=== PATIENT | female | born 1970 | race Caucasian/White ===

== ENCOUNTER 2016-11-22 16:44 | Emergency (ER) | payer OTHER ==
[~2016-11-22] VITALS: Ht 162.5 cm; Wt 54.4 kg
[~2016-11-22 16:44] MED LIST: BENTYL10 MG PO; CARBAMAZEPINE; CIPRO500 MG PO; DILANTIN100 MG PO; FOLIC ACID1 MG PO; KETOROLAC10 MG PO; LAMOTRIGINE200 MG PO; LIDEX 0.05% CRE15 GM T; MASON NATURAL2000 IU PO; MELATONIN5 M7 PO; MULTIPLE VITAMI1 CAP PO; NAPROSYN500 MG PO; NEURONTIN300 MG PO; PARAFON FORTE500 MG PO; PRILOSEC20 MG PO; PROTONIX40 MG PO; TEGRETOL PO; TOPIRAMATE25 MG PO; ZOFRAN ODT4 MG SL; Zofran4 MG PO; [UNRECOGNIZED DRUG - CODE] PO
[2016-11-22] MEDS ORDERED: Zofran4 MG PO (17:28)
== END 2016-11-22 17:36 | disposition home or self-care (01) ==
LOC: ED 16:44
DX: K29.00 Acute gastritis without bleeding (principal); F17.200 Nicotine dependence, unspecified, uncomplicated; Z88.0 Allergy status to penicillin; Z79.899 Other long term (current) drug therapy

== ENCOUNTER 2016-12-13 18:03 | Emergency (ER) | payer OTHER ==
[~2016-12-13] VITALS: Ht 162.5 cm; Wt 53.1 kg
== END 2016-12-13 19:41 | disposition home or self-care (01) ==
LOC: ED 18:03
DX: H11.31 Conjunctival hemorrhage, right eye (principal); F17.200 Nicotine dependence, unspecified, uncomplicated; Z88.0 Allergy status to penicillin; Z90.49 Acquired absence of other specified parts of digestive tract

== ENCOUNTER 2017-04-09 19:03 | Emergency (ER) | payer OTHER ==
[~2017-04-09] VITALS: Ht 162.5 cm; Wt 51.7 kg
[2017-04-09 19:53] LABS: BASO # 0.1 10*3/uL (0.0-0.1); BASO % 0.7 % (0.0-1.0); EOS # 0.3 10*3/uL (0.0-0.4); EOS % 3.5 % (1.0-4.0); HEMATOCRIT 37.8 % (37.0-47.0); HEMOGLOBIN 12.5 g/dl (12.0-16.0); LYMPH # 3.7 10*3/uL (1.3-4.4); LYMPH % 39.3 % (27.0-41.0); MEAN CELL VOLUME 94.7 fl (81.0-99.0); MEAN CORPUSCULAR HGB 31.3 pg (27.0-31.0); MEAN CORPUSCULAR HGB CONC 33.1 g/dl (33.0-37.0); MEAN PLATELET VOLUME 10.9 fl (9.6-12.3); MONO # 0.5 10*3/uL (0.1-1.0); MONO % 5.7 % (3.0-9.0); NEUT # 4.8 10*3/uL (2.3-7.9); NEUT % 50.6 % (47.0-73.0); PLATELET COUNT AUTOMATED 221 10*3/uL (130-400); RED BLOOD COUNT 3.99 10*6/uL (4.10-5.10); RED CELL DISTRI WIDTH 12.9 % (0-14.5); WHITE BLOOD COUNT 9.4 10*3/uL (4.8-10.8)
[2017-04-09 20:07] LABS: ALBUMIN 3.4 gm/dl (3.1-4.5); ALKALINE PHOSPHATASE 55 U/L (45-117); BUN 16 mg/dl (7-24); CHLORIDE 109 mmol/L (98-107); CREATININE 0.78 mg/dL (0.55-1.02); LIPASE 164 U/L (73-393); POTASSIUM 4.4 mmol/L (3.5-5.1); SGOT/AST 9 IU/L (3-35); SGPT/ALT 22 U/L (12-78); SODIUM 142 mmol/L (136-145); TOTAL PROTEIN 6.8 gm/dL (6.4-8.2)
[2017-04-09 20:10] LABS: BILIRUBIN NEGATIVE (NEGATIVE); BLOOD 2+ (NEGATIVE); CLARITY SL CLOUDY (CLEAR); COLOR YELLOW (YELLOW); GLUCOSE NEGATIVE (NEGATIVE); KETONE NEGATIVE (NEGATIVE); LEUKO ESTERASE TRACE (NEGATIVE); NITRITE NEGATIVE (NEGATIVE); PH 7.5 (5.0-9.0); SPECIFIC GRAVITY 1.015 (1.005-1.030)
[2017-04-09 20:17] LABS: BACTERIA 1+; EPITHELIAL CELLS 31-40; RBC 21-30 rbc/hpf (0-2)
[2017-04-09] MEDS ORDERED: SEPTDS PO (21:44)
== END 2017-04-10 00:10 | disposition home or self-care (01) ==
LOC: ED 19:03
PROVIDERS: Nurse Practitioner Family
DX: N39.0 Urinary tract infection, site not specified (principal); R31.9 Hematuria, unspecified; Z90.49 Acquired absence of other specified parts of digestive tract; Z98.890 Other specified postprocedural states; Z79.899 Other long term (current) drug therapy

== ENCOUNTER 2017-06-27 13:48 | Emergency (ER) | payer OTHER ==
[~2017-06-27] VITALS: Ht 165.1 cm; Wt 56.7 kg
[~2017-06-27 13:48] MED LIST changes: +SEPTDS PO
== END 2017-06-27 14:27 | disposition home or self-care (01) ==
LOC: ED 13:48
DX: S61.301A Unspecified open wound of left index finger with damage to nail, initial encounter (principal); F17.200 Nicotine dependence, unspecified, uncomplicated; Z79.899 Other long term (current) drug therapy; X58.XXXA Exposure to other specified factors, initial encounter; Y93.9 Activity, unspecified; Y92.89 Other specified places as the place of occurrence of the external cause; Y99.8 Other external cause status

== ENCOUNTER 2017-07-01 15:04 | Emergency (ER) | payer OTHER ==
[~2017-07-01] VITALS: Ht 165.1 cm; Wt 52.2 kg
[2017-07-01 15:43] LABS: BASO # 0.1 10*3/uL (0.0-0.1); EOS # 0.2 10*3/uL (0.0-0.4); EOS % 2.3 % (1.0-4.0); HEMATOCRIT 40.8 % (37.0-47.0); HEMOGLOBIN 13.7 g/dl (12.0-16.0); LYMPH # 1.7 10*3/uL (1.3-4.4); LYMPH % 22.1 % (27.0-41.0); MEAN CELL VOLUME 93.6 fl (81.0-99.0); MEAN CORPUSCULAR HGB 31.4 pg (27.0-31.0); MEAN CORPUSCULAR HGB CONC 33.6 g/dl (33.0-37.0); MEAN PLATELET VOLUME 10.7 fl (9.6-12.3); MONO # 0.4 10*3/uL (0.1-1.0); MONO % 4.6 % (3.0-9.0); NEUT # 5.4 10*3/uL (2.3-7.9); NEUT % 69.9 % (47.0-73.0); PLATELET COUNT AUTOMATED 231 10*3/uL (130-400); RED BLOOD COUNT 4.36 10*6/uL (4.10-5.10); RED CELL DISTRI WIDTH 12.5 % (0-14.5); WHITE BLOOD COUNT 7.8 10*3/uL (4.8-10.8)
[2017-07-01 15:54] LABS: ACT PARTIAL THROMBO TIME 21.8 SECONDS (20.8-31.5)
[2017-07-01 15:59] LABS: ALBUMIN 3.8 gm/dl (3.1-4.5); ALKALINE PHOSPHATASE 55 U/L (45-117); BUN 13 mg/dl (7-24); CHLORIDE 109 mmol/L (98-107); CREATININE 0.89 mg/dL (0.55-1.02); PHENYTOIN (DILANTIN) 0.9 ug/ml (10-20); POTASSIUM 4.5 mmol/L (3.5-5.1); SGOT/AST 11 IU/L (3-35); SGPT/ALT 15 U/L (12-78); SODIUM 143 mmol/L (136-145); TOTAL PROTEIN 7.3 gm/dL (6.4-8.2)
[2017-07-01 16:01] LABS: TROPONIN I < 0.015 ng/ml (<0.045)
[2017-07-01 16:03] LABS: ETHYL ALCOHOL < 3.0 mg/dl (<3)
[2017-07-01 18:18] LABS: URINE AMPHETAMINES < 1000 (1000ng/ml); URINE BARBITURATES < 200 (200ng/ml); URINE BENZODIAZEPINES < 200 (200ng/ml); URINE CANNABINOIDS (THC) < 50 (50ng/ml); URINE COCAINE < 300 (300ng/ml); URINE METHADONE < 300 (300ng/ml); URINE OPIATES < 300 (300ng/ml)
[2017-07-01 18:22] LABS: URINE PHENCYCLIDINE < 25 (25ng/ml)
== END 2017-07-01 21:32 | disposition short-term general hospital (02) ==
LOC: ED 15:04
PROVIDERS: Emergency Medicine
DX: G40.909 Epilepsy, unspecified, not intractable, without status epilepticus (principal); R41.0 Disorientation, unspecified; R79.89 Other specified abnormal findings of blood chemistry; Z79.899 Other long term (current) drug therapy

== ENCOUNTER → 2017-10-11 | Outpatient (CLI) | payer OTHER ==
[2017-10-11 08:59] LABS: ALBUMIN 3.5 gm/dl (3.1-4.5); ALKALINE PHOSPHATASE 65 U/L (45-117); BILIRUBIN, DIRECT < 0.1 mg/dL (0.0-0.2); SGOT/AST 15 IU/L (3-35); SGPT/ALT 30 U/L (12-78); TOTAL PROTEIN 7.1 gm/dL (6.4-8.2)
[2017-10-11 09:08] LABS: PHENYTOIN (DILANTIN) 10.6 ug/ml (10-20)
== END | disposition home or self-care (01) ==
LOC: LAB 08:17
PROVIDERS: Psychiatry & Neurology Neurology
DX: G40.309 Generalized idiopathic epilepsy and epileptic syndromes, not intractable, without status epilepticus (principal)

== ENCOUNTER 2017-12-27 21:23 | Emergency (ER) | payer OTHER ==
[~2017-12-27] VITALS: Ht 162.5 cm; Wt 65.8 kg
[2017-12-27] MEDS ORDERED: QVAR8.7 G1 INH (21:24)
[2017-12-27] MEDS ORDERED: VENTOLIN 02.5 MG/3 M INH (21:24)
== END 2017-12-28 00:05 | disposition home or self-care (01) ==
LOC: ED 21:23
DX: S09.8XXA Other specified injuries of head, initial encounter (principal); F17.200 Nicotine dependence, unspecified, uncomplicated; Z88.0 Allergy status to penicillin; Z79.899 Other long term (current) drug therapy; W18.09XA Striking against other object with subsequent fall, initial encounter; Y93.89 Activity, other specified; Y92.89 Other specified places as the place of occurrence of the external cause; Y99.8 Other external cause status

== ENCOUNTER 2018-04-30 13:22 | Emergency (ER) | payer OTHER ==
[~2018-04-30] VITALS: Ht 165.1 cm; Wt 54.4 kg
[~2018-04-30 13:22] MED LIST changes: +QVAR8.7 G1 INH; +VENTOLIN 02.5 MG/3 M INH
[2018-04-30] MEDS ORDERED: ZOFRAN4 MG PO (13:37)
[2018-04-30] MEDS ORDERED: CLINDAMYCIN150 MG PO (13:37)
[2018-04-30] MEDS ORDERED: NAPROSYN500 MG PO (13:37)
== END 2018-04-30 14:25 | disposition home or self-care (01) ==
LOC: ED 13:22
DX: S61.032A Puncture wound without foreign body of left thumb without damage to nail, initial encounter (principal); K21.9 Gastro-esophageal reflux disease without esophagitis; G40.909 Epilepsy, unspecified, not intractable, without status epilepticus; Z88.0 Allergy status to penicillin; Z79.899 Other long term (current) drug therapy; W54.0XXA Bitten by dog, initial encounter; Y93.89 Activity, other specified; Y92.89 Other specified places as the place of occurrence of the external cause; Y99.8 Other external cause status

== ENCOUNTER 2018-07-28 11:24 | Emergency (ER) | payer OTHER ==
[~2018-07-28] VITALS: Ht 162.5 cm; Wt 54.4 kg
[~2018-07-28 11:24] MED LIST changes: +CLINDAMYCIN150 MG PO; +ZOFRAN4 MG PO
[2018-07-28 12:12] LABS: BASO % 0.4 % (0.0-1.0); EOS % 0.3 % (1.0-4.0); HEMATOCRIT 42.7 % (37.0-47.0); HEMOGLOBIN 14.4 g/dl (12.0-16.0); LYMPH # 0.8 10*3/uL (1.3-4.4); LYMPH % 9.7 % (27.0-41.0); MEAN CELL VOLUME 98.4 fl (81.0-99.0); MEAN CORPUSCULAR HGB 33.2 pg (27.0-31.0); MEAN CORPUSCULAR HGB CONC 33.7 g/dl (33.0-37.0); MEAN PLATELET VOLUME 10.7 fl (9.6-12.3); MONO # 0.4 10*3/uL (0.1-1.0); MONO % 4.4 % (3.0-9.0); NEUT # 6.8 10*3/uL (2.3-7.9); NEUT % 84.8 % (47.0-73.0); PLATELET COUNT AUTOMATED 223 10*3/uL (130-400); RED BLOOD COUNT 4.34 10*6/uL (4.10-5.10); RED CELL DISTRI WIDTH 12.6 % (0-14.5)
[2018-07-28 12:26] LABS: ALBUMIN 3.6 gm/dl (3.1-4.5); ALKALINE PHOSPHATASE 68 U/L (45-117); BUN 12 mg/dl (7-24); CHLORIDE 107 mmol/L (98-107); CREATININE 0.84 mg/dL (0.55-1.02); PHENYTOIN (DILANTIN) 7.8 ug/ml (10-20); POTASSIUM 4.3 mmol/L (3.5-5.1); SGOT/AST 12 IU/L (3-35); SGPT/ALT 24 U/L (12-78); SODIUM 140 mmol/L (136-145); TOTAL PROTEIN 7.1 gm/dL (6.4-8.2)
== END 2018-07-28 14:54 | disposition home or self-care (01) ==
LOC: ED 11:24
PROVIDERS: Emergency Medicine
DX: G40.909 Epilepsy, unspecified, not intractable, without status epilepticus (principal); R51 Headache; K21.9 Gastro-esophageal reflux disease without esophagitis; Z88.0 Allergy status to penicillin; Z79.2 Long term (current) use of antibiotics; Z79.899 Other long term (current) drug therapy; Z90.49 Acquired absence of other specified parts of digestive tract

== ENCOUNTER → 2018-08-24 | Outpatient (CLI) | payer OTHER ==
[2018-08-24 10:29] LABS: BASO # 0.1 10*3/uL (0.0-0.1); BASO % 0.7 % (0.0-1.0); EOS # 0.5 10*3/uL (0.0-0.4); EOS % 6.2 % (1.0-4.0); HEMATOCRIT 44.5 % (37.0-47.0); HEMOGLOBIN 14.4 g/dl (12.0-16.0); LYMPH % 26.4 % (27.0-41.0); MEAN CELL VOLUME 98.7 fl (81.0-99.0); MEAN CORPUSCULAR HGB 31.9 pg (27.0-31.0); MEAN CORPUSCULAR HGB CONC 32.4 g/dl (33.0-37.0); MEAN PLATELET VOLUME 10.4 fl (9.6-12.3); MONO # 0.5 10*3/uL (0.1-1.0); MONO % 6.4 % (3.0-9.0); NEUT # 4.5 10*3/uL (2.3-7.9); PLATELET COUNT AUTOMATED 243 10*3/uL (130-400); RED BLOOD COUNT 4.51 10*6/uL (4.10-5.10); RED CELL DISTRI WIDTH 12.8 % (0-14.5); WHITE BLOOD COUNT 7.5 10*3/uL (4.8-10.8)
[2018-08-24 10:35] LABS: URINE AMPHETAMINES < 1000 (1000ng/ml); URINE BARBITURATES < 200 (200ng/ml); URINE BENZODIAZEPINES < 200 (200ng/ml); URINE CANNABINOIDS (THC) < 50 (50ng/ml); URINE COCAINE < 300 (300ng/ml); URINE METHADONE < 300 (300ng/ml); URINE OPIATES < 300 (300ng/ml)
[2018-08-24 10:47] LABS: URINE PHENCYCLIDINE < 25 (25ng/ml)
[2018-08-24 10:54] LABS: ALBUMIN 3.7 gm/dl (3.1-4.5); ALKALINE PHOSPHATASE 68 U/L (45-117); BILIRUBIN, DIRECT < 0.1 mg/dL (0.0-0.2); PHENYTOIN (DILANTIN) 18.7 ug/ml (10-20); SGOT/AST 17 IU/L (3-35); SGPT/ALT 35 U/L (12-78); TOTAL PROTEIN 7.4 gm/dL (6.4-8.2)
== END | disposition home or self-care (01) ==
LOC: LAB 09:55
PROVIDERS: Psychiatry & Neurology Neurology
DX: G40.309 Generalized idiopathic epilepsy and epileptic syndromes, not intractable, without status epilepticus (principal)

== ENCOUNTER → 2018-09-29 | Outpatient (CLI) | payer OTHER ==
[2018-09-29 09:52] LABS: BASO # 0.1 10*3/uL (0.0-0.1); BASO % 1.2 % (0.0-1.0); EOS # 0.2 10*3/uL (0.0-0.4); EOS % 3.1 % (1.0-4.0); HEMATOCRIT 42.4 % (37.0-47.0); HEMOGLOBIN 13.5 g/dl (12.0-16.0); LYMPH # 1.9 10*3/uL (1.3-4.4); LYMPH % 28.7 % (27.0-41.0); MEAN CELL VOLUME 98.6 fl (81.0-99.0); MEAN CORPUSCULAR HGB 31.4 pg (27.0-31.0); MEAN CORPUSCULAR HGB CONC 31.8 g/dl (33.0-37.0); MEAN PLATELET VOLUME 10.2 fl (9.6-12.3); MONO # 0.4 10*3/uL (0.1-1.0); NEUT # 4.1 10*3/uL (2.3-7.9); NEUT % 60.7 % (47.0-73.0); PLATELET COUNT AUTOMATED 271 10*3/uL (130-400); RED CELL DISTRI WIDTH 13.1 % (0-14.5); WHITE BLOOD COUNT 6.7 10*3/uL (4.8-10.8)
[2018-09-29 10:28] LABS: ALBUMIN 3.5 gm/dl (3.1-4.5); BUN 17 mg/dl (7-24); CHLORIDE 105 mmol/L (98-107); CHOLESTEROL 219 mg/dL (<200); CREATININE 0.76 mg/dL (0.55-1.02); HDL CHOLESTEROL 66 mg/dl (40-60); LDL CHOLESTEROL 136 mg/dL (9-159); POTASSIUM 4.1 mmol/L (3.5-5.1); SGOT/AST 13 IU/L (3-35); SODIUM 139 mmol/L (136-145); TRIGLYCERIDES 87 mg/dl (<150); VLDL CHOLESTEROL 17 mg/dL (6-40)
[2018-09-29 10:38] LABS: ALKALINE PHOSPHATASE 84 U/L (45-117); SGPT/ALT 25 U/L (12-78); TOTAL PROTEIN 7.2 gm/dL (6.4-8.2)
[2018-09-29 10:42] LABS: VITAMIN D, 25-HYDROXY 7.3 ng/mL (30-100)
== END | disposition home or self-care (01) ==
LOC: LAB 09:23
PROVIDERS: Nurse Practitioner Family
DX: Z51.81 Encounter for therapeutic drug level monitoring (principal); N91.2 Amenorrhea, unspecified; F31.9 Bipolar disorder, unspecified; Z79.899 Other long term (current) drug therapy

== ENCOUNTER 2019-04-28 20:57 | Inpatient (IN) | payer OTHER ==
[~2019-04-28] VITALS: Ht 162.5 cm; Wt 52.4 kg
--- NOTE | 2019-04-28 21:05 | NUR ---
BUGS SEEN ON PT IN TRIAGE.PT TAKEN TO DECON ROOM.MD MARSH AWARE.
--- NOTE | 2019-04-28 21:23 | NUR ---
PT RETURNED TO ROOM 15 VIA W/C.BELONGINGS DOUBLE BAGGED AND AT BEDSIDE.
[2019-04-28 21:52] LABS: BASO # 0.1 10*3/uL (0.0-0.1); BASO % 0.9 % (0.0-1.0); EOS # 0.3 10*3/uL (0.0-0.4); EOS % 3.2 % (1.0-4.0); HEMATOCRIT 40.4 % (37.0-47.0); HEMOGLOBIN 13.7 g/dl (12.0-16.0); LYMPH # 3.4 10*3/uL (1.3-4.4); LYMPH % 41.8 % (27.0-41.0); MEAN CELL VOLUME 96.4 fl (81.0-99.0); MEAN CORPUSCULAR HGB 32.7 pg (27.0-31.0); MEAN CORPUSCULAR HGB CONC 33.9 g/dl (33.0-37.0); MEAN PLATELET VOLUME 10.8 fl (9.6-12.3); MONO # 0.5 10*3/uL (0.1-1.0); MONO % 6.5 % (3.0-9.0); NEUT # 3.9 10*3/uL (2.3-7.9); NEUT % 47.4 % (47.0-73.0); PLATELET COUNT AUTOMATED 211 10*3/uL (130-400); RED BLOOD COUNT 4.19 10*6/uL (4.10-5.10); RED CELL DISTRI WIDTH 12.7 % (0-14.5); WHITE BLOOD COUNT 8.2 10*3/uL (4.8-10.8)
[2019-04-28 22:07] LABS: BILIRUBIN NEGATIVE (NEGATIVE); BLOOD 3+ (NEGATIVE); CLARITY CLEAR (CLEAR); COLOR YELLOW (YELLOW); GLUCOSE NEGATIVE (NEGATIVE); KETONE NEGATIVE (NEGATIVE); LEUKO ESTERASE 2+ (NEGATIVE); NITRITE NEGATIVE (NEGATIVE); PH 7.5 (5.0-9.0)
[2019-04-28 22:07] LABS: CHLORIDE 109 mmol/L (98-107); SODIUM 140 mmol/L (136-145)
[2019-04-28 22:11] LABS: ALBUMIN 3.6 gm/dl (3.1-4.5); ALKALINE PHOSPHATASE 69 U/L (45-117); BUN 8 mg/dl (7-24); CREATININE 0.81 mg/dL (0.55-1.02); SGOT/AST 9 IU/L (3-35); SGPT/ALT 15 U/L (12-78); TOTAL PROTEIN 6.9 gm/dL (6.4-8.2)
[2019-04-28 22:13] LABS: URINE AMPHETAMINES < 1000 (1000ng/ml); URINE BARBITURATES < 200 (200ng/ml); URINE BENZODIAZEPINES < 200 (200ng/ml); URINE CANNABINOIDS (THC) < 50 (50ng/ml); URINE COCAINE < 300 (300ng/ml); URINE METHADONE < 300 (300ng/ml); URINE OPIATES < 300 (300ng/ml)
[2019-04-28 22:17] LABS: URINE PHENCYCLIDINE < 25 (25ng/ml)
[2019-04-28 22:17] LABS: POTASSIUM 3.5 mmol/L (3.5-5.1)
[2019-04-28 22:36] LABS: BACTERIA 1+; EPITHELIAL CELLS 0-2; WBC 21-30 wbc/hpf (0-5)
[2019-04-29 00:48] VITALS: BP 90/56
[2019-04-29 01:00] VITALS: BP 115/68
--- NOTE | 2019-04-29 03:45 | NUR ---
NOTIFIED THAT POISON CONTROL CALLED FOR NEW DILANTIN LEVEL. WITH THE DIFFERENCE BETWEEN THE 2 LEVELS, THEY ARE REQUESTING NEW DILANTIN LEVEL.
[2019-04-29 06:40] LABS: BASO # 0.1 10*3/uL (0.0-0.1); EOS # 0.2 10*3/uL (0.0-0.4); EOS % 3.5 % (1.0-4.0); HEMATOCRIT 39.2 % (37.0-47.0); HEMOGLOBIN 12.7 g/dl (12.0-16.0); LYMPH # 2.5 10*3/uL (1.3-4.4); LYMPH % 38.8 % (27.0-41.0); MEAN CELL VOLUME 98.5 fl (81.0-99.0); MEAN CORPUSCULAR HGB 31.9 pg (27.0-31.0); MEAN CORPUSCULAR HGB CONC 32.4 g/dl (33.0-37.0); MEAN PLATELET VOLUME 10.9 fl (9.6-12.3); MONO # 0.4 10*3/uL (0.1-1.0); MONO % 6.7 % (3.0-9.0); NEUT # 3.2 10*3/uL (2.3-7.9); NEUT % 49.8 % (47.0-73.0); PLATELET COUNT AUTOMATED 203 10*3/uL (130-400); RED BLOOD COUNT 3.98 10*6/uL (4.10-5.10); RED CELL DISTRI WIDTH 12.8 % (0-14.5); WHITE BLOOD COUNT 6.3 10*3/uL (4.8-10.8)
[2019-04-29 06:54] LABS: ALBUMIN 3.1 gm/dl (3.1-4.5); BUN 11 mg/dl (7-24); CHLORIDE 110 mmol/L (98-107); CREATININE 0.65 mg/dL (0.55-1.02); POTASSIUM 3.9 mmol/L (3.5-5.1); SGOT/AST 9 IU/L (3-35); SGPT/ALT 14 U/L (12-78); SODIUM 140 mmol/L (136-145); TOTAL PROTEIN 5.9 gm/dL (6.4-8.2)
[2019-04-29 07:10] LABS: ALKALINE PHOSPHATASE 61 U/L (45-117); FREE T4 0.71 ng/dl (0.76-1.46)
--- NOTE | 2019-04-29 07:30 | NUR ---
24 HR chart check completed.
[2019-04-29 07:32] LABS: PHENYTOIN (DILANTIN) 37.1 ug/ml (10-20)
--- NOTE | 2019-04-29 07:40 | NUR ---
DR DOBBS CONTACTED AND INFORMED OF CRITICAL DILANTIN LEVEL 37.1. NO NEW ORDERS RECEIVED AT THIS TIME
[2019-04-29 08:00] VITALS: BP 118/60
--- NOTE | 2019-04-29 09:00 | NUR ---
RESTING IN BED. NO DISTRESS NOTED. RESPIRATIONS EASY. LUNGS DIMINISHED, CLEAR. PULSE OX 99% RA. OFFERED AND EDUCATED REGARDING TEDS, DECLINED. IV FLUIDS MAINTAINED. CALL LIGHT WITHIN REACH. NO VOICED COMPLAINTS
--- NOTE | 2019-04-29 10:00 | NUR ---
DR FOURNIER AND RINKU HERE TO ASSESS PATIENT AND DISCUSS PLAN OF CARE
[2019-04-29 12:00] VITALS: BP 125/81
--- NOTE | 2019-04-29 12:00 | NUR ---
SITTING IN BED. NO DISTRESS NOTED. RESPIRATIONS EASY. IV FLUIDS MAINTAINED. CALL LIGHT WITHIN REACH
[2019-04-29 16:00] VITALS: BP 122/85
--- NOTE | 2019-04-29 18:00 | NUR ---
RESTING IN BED WITH NO DISTRESS NOTED. RESPIRATIONS EASY. IV FLUIDS MAINTAINED. CALL LIGHT WITHIN REACH. NO VOICED COMPLAINTS
[2019-04-29 20:00] VITALS: BP 113/79
--- NOTE | 2019-04-29 20:19 | NUR ---
PATIENT AWAKE AND ALERT SITTING INBED. PATIENT HAS NO COMPLAINTS AT THIS TIME. PATIENT ONLY WISHES TO GO HOME. PATIENT EDUCATED ON DILANTIN LEVEL AND WHY SHE IS NOT RECEVING THE DILANTIN AT THIS TIME. PATIENT STATES SHE UNDERSTANDS. PATIENT EDUCATED ON OPTIONS AVAILABLE FOR NICOTINE WITHDRAWAL. PATIENT STATES THAT SHE DOES NOT NEED ANYTHING AT THIS TIME, BUT WILL LET US KNOW IF SHE DOES. SEE ASSESSMENT. CALL INGRAM WITHIN REACH.
[2019-04-30] VITALS: BP 121/74
--- NOTE | 2019-04-30 02:48 | NUR ---
PATIENT RESTING WITH EYES CLOSED.RESPIRATIONS EASY AND UNLABORED. CALL LIGHT WITHIN REACH. WILL MONITOR.
--- NOTE | 2019-04-30 05:00 | NUR ---
24 HR chart check completed.
[2019-04-30 06:23] LABS: BASO # 0.1 10*3/uL (0.0-0.1); BASO % 0.8 % (0.0-1.0); EOS # 0.2 10*3/uL (0.0-0.4); EOS % 2.4 % (1.0-4.0); HEMATOCRIT 36.5 % (37.0-47.0); LYMPH # 2.5 10*3/uL (1.3-4.4); LYMPH % 38.7 % (27.0-41.0); MEAN CELL VOLUME 97.3 fl (81.0-99.0); MEAN CORPUSCULAR HGB CONC 32.9 g/dl (33.0-37.0); MEAN PLATELET VOLUME 11.2 fl (9.6-12.3); MONO # 0.4 10*3/uL (0.1-1.0); MONO % 6.1 % (3.0-9.0); NEUT # 3.3 10*3/uL (2.3-7.9); NEUT % 51.8 % (47.0-73.0); PLATELET COUNT AUTOMATED 176 10*3/uL (130-400); RED BLOOD COUNT 3.75 10*6/uL (4.10-5.10); RED CELL DISTRI WIDTH 12.9 % (0-14.5); WHITE BLOOD COUNT 6.4 10*3/uL (4.8-10.8)
[2019-04-30 06:57] LABS: BUN 12 mg/dl (7-24); CHLORIDE 111 mmol/L (98-107); CREATININE 0.79 mg/dL (0.55-1.02); POTASSIUM 3.9 mmol/L (3.5-5.1); SODIUM 141 mmol/L (136-145)
[2019-04-30 07:06] LABS: PHENYTOIN (DILANTIN) 29.6 ug/ml (10-20)
--- NOTE | 2019-04-30 07:35 | NUR ---
24 HR chart check completed.
[2019-04-30 08:00] VITALS: BP 112/60
--- NOTE | 2019-04-30 10:45 | NUR ---
Discharge instructions reviewed with patient/family. Patient receptive and verbalizes understanding. Follow-up care arranged. Written instructions given to patient/family. PATIENT OFFERED WC FOR D/C, DECLINED. AMBULATED OFF FLOOR IN STABLE CONDITION DURAN CARNEY
== END 2019-04-30 10:45 | disposition home or self-care (01) | DRG 812 ==
LOC: ED 20:57 → EDHOLD 23:36 → 5E 23:36
PROVIDERS: Emergency Medicine Emergency Medical Services; Internal Medicine; ADMIT Internal Medicine
DX: T42.0X1A Poisoning by hydantoin derivatives, accidental (unintentional), initial encounter (principal); N39.0 Urinary tract infection, site not specified; A59.9 Trichomoniasis, unspecified; K21.9 Gastro-esophageal reflux disease without esophagitis; G40.909 Epilepsy, unspecified, not intractable, without status epilepticus; F32.9 Major depressive disorder, single episode, unspecified; R73.9 Hyperglycemia, unspecified; F17.210 Nicotine dependence, cigarettes, uncomplicated; Y92.89 Other specified places as the place of occurrence of the external cause; Z71.6 Tobacco abuse counseling; Z88.0 Allergy status to penicillin; Z91.81 History of falling; Z87.440 Personal history of urinary (tract) infections; Z90.49 Acquired absence of other specified parts of digestive tract; Z98.891 History of uterine scar from previous surgery; Z79.899 Other long term (current) drug therapy

== ENCOUNTER → 2019-05-02 | Outpatient (CLI) | payer OTHER | END | disposition home or self-care (01) | LOC: LAB 09:35 | DX: T42.0X1A Poisoning by hydantoin derivatives, accidental (unintentional), initial encounter (principal) ==

== ENCOUNTER 2019-08-20 20:38 | Emergency (ER) | payer OTHER ==
[~2019-08-20] VITALS: Ht 152.4 cm; Wt 50.3 kg
[2019-08-20 21:45] LABS: BASO # 0.1 10*3/uL (0.0-0.1); BASO % 0.5 % (0.0-1.0); EOS % 0.2 % (1.0-4.0); HEMOGLOBIN 12.8 g/dl (12.0-16.0); LYMPH # 1.6 10*3/uL (1.3-4.4); LYMPH % 16.5 % (27.0-41.0); MEAN CELL VOLUME 99.3 fl (81.0-99.0); MEAN CORPUSCULAR HGB 31.8 pg (27.0-31.0); MEAN PLATELET VOLUME 11.5 fl (9.6-12.3); MONO # 0.4 10*3/uL (0.1-1.0); MONO % 4.6 % (3.0-9.0); NEUT # 7.4 10*3/uL (2.3-7.9); NEUT % 77.8 % (47.0-73.0); PLATELET COUNT AUTOMATED 230 10*3/uL (130-400); RED BLOOD COUNT 4.03 10*6/uL (4.10-5.10); RED CELL DISTRI WIDTH 12.4 % (0-14.5); WHITE BLOOD COUNT 9.5 10*3/uL (4.8-10.8)
[2019-08-20 22:03] LABS: ALBUMIN 3.6 gm/dl (3.1-4.5); ALKALINE PHOSPHATASE 59 U/L (45-117); BUN 21 mg/dl (7-24); CHLORIDE 113 mmol/L (98-107); CREATININE 1.15 mg/dL (0.55-1.02); POTASSIUM 3.9 mmol/L (3.5-5.1); SGOT/AST 10 IU/L (3-35); SGPT/ALT 18 U/L (12-78); SODIUM 141 mmol/L (136-145); TOTAL PROTEIN 7.2 gm/dL (6.4-8.2)
[2019-08-20 22:15] LABS: TROPONIN I < 0.015 ng/ml (<0.045)
[2019-08-21 01:44] LABS: BILIRUBIN NEGATIVE (NEGATIVE); BLOOD 3+ (NEGATIVE); CLARITY SL CLOUDY (CLEAR); COLOR YELLOW (YELLOW); GLUCOSE NEGATIVE (NEGATIVE); KETONE 1+ (NEGATIVE); LEUKO ESTERASE NEGATIVE (NEGATIVE); NITRITE NEGATIVE (NEGATIVE); UROBILINOGEN 0.2 E.U./dl (0.2-1.0)
[2019-08-21 01:50] LABS: EPITHELIAL CELLS 30-35
[2019-08-21 01:52] LABS: RBC 41-50 rbc/hpf (0-2); YEAST 1+
[2019-08-21 05:24] LABS: URINE AMPHETAMINES < 1000 (1000ng/ml); URINE BARBITURATES < 200 (200ng/ml); URINE BENZODIAZEPINES < 200 (200ng/ml); URINE CANNABINOIDS (THC) < 50 (50ng/ml); URINE COCAINE < 300 (300ng/ml); URINE METHADONE < 300 (300ng/ml); URINE OPIATES < 300 (300ng/ml)
[2019-08-21 05:25] LABS: URINE PHENCYCLIDINE < 25 (25ng/ml)
[2019-08-21] MEDS ORDERED: CEPHALEXIN500 M1 PO (06:07)
[2019-08-21] MEDS ORDERED: METRONIDAZOLE500 M1 PO (06:07)
== END 2019-08-21 06:50 | disposition home or self-care (01) ==
LOC: ED
PROVIDERS: Emergency Medicine
DX: G40.909 Epilepsy, unspecified, not intractable, without status epilepticus (principal); N39.0 Urinary tract infection, site not specified; A59.9 Trichomoniasis, unspecified; K21.9 Gastro-esophageal reflux disease without esophagitis; F17.200 Nicotine dependence, unspecified, uncomplicated; Z88.0 Allergy status to penicillin; Z79.899 Other long term (current) drug therapy; Z90.49 Acquired absence of other specified parts of digestive tract

== ENCOUNTER → 2019-09-15 | Outpatient (CLI) | payer OTHER ==
[~2019-09-15] MED LIST changes: +CEPHALEXIN500 M1 PO; +METRONIDAZOLE500 M1 PO
== END | disposition home or self-care (01) ==
LOC: CT 00:12
DX: R56.9 Unspecified convulsions (principal)

== ENCOUNTER → 2020-01-22 | Outpatient (CLI) | payer OTHER | END | disposition home or self-care (01) | LOC: MAMMO 00:13 | DX: Z12.31 Encounter for screening mammogram for malignant neoplasm of breast (principal) ==

== ENCOUNTER → 2020-03-26 | Outpatient (CLI) | payer OTHER | END | disposition home or self-care (01) | LOC: CP 12:22 | PROVIDERS: ATTEND Family Medicine | DX: J44.9 Chronic obstructive pulmonary disease, unspecified (principal) ==

== ENCOUNTER → 2020-04-03 | Outpatient (CLI) | payer OTHER | END | disposition home or self-care (01) | LOC: LAB 12:34 | PROVIDERS: ATTEND Family Medicine | DX: Z51.81 Encounter for therapeutic drug level monitoring (principal); Z79.899 Other long term (current) drug therapy ==

== ENCOUNTER 2021-01-30 16:25 | Emergency (ER) | payer OTHER ==
[~2021-01-30 16:25] MED LIST changes: +KEPPRA500 MG PO; +KEPPRA750 MG PO
[2021-01-30 19:00] LABS: BASO # 0.1 10*3/uL (0.0-0.1); BASO % 0.8 % (0.0-1.0); EOS # 0.2 10*3/uL (0.0-0.4); EOS % 2.4 % (1.0-4.0); HEMATOCRIT 39.8 % (37.0-47.0); LYMPH # 3.2 10*3/uL (1.3-4.4); LYMPH % 32.6 % (27.0-41.0); MEAN CELL VOLUME 93.2 fl (81.0-99.0); MEAN CORPUSCULAR HGB 30.7 pg (27.0-31.0); MEAN CORPUSCULAR HGB CONC 32.9 g/dl (33.0-37.0); MEAN PLATELET VOLUME 11.3 fl (9.6-12.3); MONO # 0.6 10*3/uL (0.1-1.0); MONO % 6.3 % (3.0-9.0); NEUT # 5.7 10*3/uL (2.3-7.9); NEUT % 57.7 % (47.0-73.0); PLATELET COUNT AUTOMATED 255 10*3/uL (130-400); RED BLOOD COUNT 4.27 10*6/uL (4.10-5.10); RED CELL DISTRI WIDTH 12.8 % (0-14.5); WHITE BLOOD COUNT 9.9 10*3/uL (4.8-10.8)
[2021-01-30 19:11] LABS: ACT PARTIAL THROMBO TIME 24.5 SECONDS (20.0-32.1); INTERNATIONAL NORM RATIO 0.9 (2.0-3.5)
[2021-01-30 19:24] LABS: ALBUMIN 3.4 gm/dl (3.1-4.5); ALKALINE PHOSPHATASE 59 U/L (45-117); BUN 9 mg/dl (7-24); CHLORIDE 116 mmol/L (98-107); CREATININE 0.73 mg/dL (0.55-1.02); POTASSIUM 3.9 mmol/L (3.5-5.1); SGOT/AST 8 IU/L (3-35); SGPT/ALT 13 U/L (12-78); SODIUM 143 mmol/L (136-145); TOTAL PROTEIN 6.8 gm/dL (6.4-8.2)
[2021-01-30] MEDS ORDERED: IBUPROFEN600 MG PO (19:57)
== END 2021-01-30 19:59 | disposition home or self-care (01) ==
LOC: ED 16:25
PROVIDERS: Physician Assistant
DX: M79.602 Pain in left arm (principal); F17.200 Nicotine dependence, unspecified, uncomplicated; Z90.49 Acquired absence of other specified parts of digestive tract; Z98.890 Other specified postprocedural states; Z79.899 Other long term (current) drug therapy; Z88.0 Allergy status to penicillin

== ENCOUNTER 2021-04-30 11:30 | Emergency (ER) | payer OTHER ==
[~2021-04-30] VITALS: Ht 162.5 cm; Wt 74.8 kg
[~2021-04-30 11:30] MED LIST changes: +IBUPROFEN600 MG PO
== END 2021-04-30 15:53 | disposition left against medical advice (07) ==
LOC: ED 11:30
DX: M25.571 Pain in right ankle and joints of right foot (principal); Z53.21 Procedure and treatment not carried out due to patient leaving prior to being seen by health care provider

== ENCOUNTER 2023-07-24 18:28 | Emergency (ER) | payer OTHER ==
[~2023-07-24] VITALS: Ht 162.5 cm; Wt 72.6 kg
[2023-07-24 19:03] LABS: BASO # 0.1 10*3/uL (0.0-0.1); BASO % 1.2 % (0.0-1.0); EOS # 0.4 10*3/uL (0.0-0.4); EOS % 4.5 % (1.0-4.0); HEMATOCRIT 44.7 % (37.0-47.0); LYMPH # 3.5 10*3/uL (1.3-4.4); LYMPH % 37.7 % (27.0-41.0); MEAN CELL VOLUME 95.7 fl (81.0-99.0); MEAN CORPUSCULAR HGB 30.6 pg (27.0-31.0); MEAN PLATELET VOLUME 10.7 fl (9.6-12.3); MONO # 0.6 10*3/uL (0.1-1.0); MONO % 6.1 % (3.0-9.0); NEUT # 4.6 10*3/uL (2.3-7.9); NEUT % 50.3 % (47.0-73.0); PLATELET COUNT AUTOMATED 305 10*3/uL (130-400); RED BLOOD COUNT 4.67 10*6/uL (4.10-5.10); WHITE BLOOD COUNT 9.2 10*3/uL (4.8-10.8)
[2023-07-24 19:20] LABS: ALKALINE PHOSPHATASE 72 U/L (46-116); BUN 10 mg/dl (9-23); CHLORIDE 111 mmol/L (98-107); POTASSIUM 3.8 mmol/L (3.4-5.1); SGPT/ALT 14 U/L (5-49); TOTAL PROTEIN 7.2 gm/dL (6.0-8.0)
== END 2023-07-24 20:35 | disposition home or self-care (01) ==
LOC: ED 18:28
PROVIDERS: Physician Assistant Medical
DX: H61.22 Impacted cerumen, left ear (principal); R42 Dizziness and giddiness; J44.9 Chronic obstructive pulmonary disease, unspecified; Z88.0 Allergy status to penicillin; Z98.890 Other specified postprocedural states; Z90.49 Acquired absence of other specified parts of digestive tract; Z98.51 Tubal ligation status; F17.210 Nicotine dependence, cigarettes, uncomplicated

== ENCOUNTER → 2023-10-05 | Outpatient (CLI) | payer OTHER ==
[~2023-10-05] MED LIST changes: +LATU40TA1 PO; +LEVETIRACETAM1000 M1 PO; +LEVETIRACETAM500 MG PO; +VISTARIL25 MG PO
[2023-10-05 17:18] LABS: FREE T4 1.04 ng/dl (0.89-1.76)
== END | disposition home or self-care (01) ==
LOC: LAB 16:18
PROVIDERS: Family Medicine; ATTEND Family Medicine
DX: G40.909 Epilepsy, unspecified, not intractable, without status epilepticus (principal); R94.6 Abnormal results of thyroid function studies

== ENCOUNTER → 2024-02-22 | Outpatient (CLI) | payer OTHER ==
[~2024-02-22] MED LIST changes: +Albuterol Sulfate 2.5 MG/3 ML VIAL NEB ONE
== END | disposition home or self-care (01) ==
LOC: CP 02-15 13:30
PROVIDERS: ATTEND Family Medicine
DX: R06.02 Shortness of breath (principal)

== ENCOUNTER → 2024-03-21 | Outpatient (CLI) | payer OTHER ==
[~2024-03-21] MED LIST changes: -Albuterol Sulfate 2.5 MG/3 ML VIAL NEB ONE
== END | disposition home or self-care (01) ==
LOC: LAB 14:06
PROVIDERS: ATTEND Family Medicine
DX: Z79.899 Other long term (current) drug therapy (principal)

== ENCOUNTER 2024-03-26 18:18 | Emergency (ER) | payer OTHER ==
[~2024-03-26] VITALS: Ht 162.5 cm; Wt 95.3 kg
[2024-03-26] MEDS ORDERED: FLUORESCEIN SODIUM 1 MG STRIP OPH ONE (18:35)
[2024-03-26] MEDS ORDERED: Tetracaine Hydrochloride 0.5% 4 ML BOT OPH ONE (18:35)
[2024-03-26] MEDS ORDERED: TOBRAMYCIN 2.5 ML BOT OPH ONE (19:25)
[2024-03-26] MEDS ORDERED: Tdap Vaccine 0.5 ML SYR (Adult Vaccine) IM ONE (19:25)
== END 2024-03-26 19:39 | disposition home or self-care (01) ==
LOC: ED 18:18
DX: S05.01XA Injury of conjunctiva and corneal abrasion without foreign body, right eye, initial encounter (principal); J44.9 Chronic obstructive pulmonary disease, unspecified; F17.200 Nicotine dependence, unspecified, uncomplicated; Z88.0 Allergy status to penicillin; Z90.49 Acquired absence of other specified parts of digestive tract; Z98.890 Other specified postprocedural states; Z98.51 Tubal ligation status; W45.0XXA Nail entering through skin, initial encounter; Y93.89 Activity, other specified; Y92.009 Unspecified place in unspecified non-institutional (private) residence as the place of occurrence of the external cause; Y99.8 Other external cause status

== ENCOUNTER → 2024-04-27 | Outpatient (CLI) | payer OTHER | END | disposition home or self-care (01) | LOC: RAD 11:26 | PROVIDERS: ATTEND Family Medicine | DX: M54.50 Low back pain, unspecified (principal) ==

== ENCOUNTER → 2024-05-09 | Outpatient (CLI) | payer OTHER | END | disposition home or self-care (01) | LOC: CT 13:00 | PROVIDERS: ATTEND Internal Medicine Critical Care Medicine | DX: R91.1 Solitary pulmonary nodule (principal); M48.00 Spinal stenosis, site unspecified; Z87.891 Personal history of nicotine dependence; J43.2 Centrilobular emphysema ==

== ENCOUNTER 2024-06-01 18:49 | Emergency (ER) | payer OTHER ==
[~2024-06-01] VITALS: Ht 160 cm; Wt 78.3 kg
[2024-06-01] MEDS ORDERED: BREYNA 80-4.510.3 GM INH (19:14)
[2024-06-01 19:35] LABS: BASO # 0.1 10*3/uL (0.0-0.1); BASO % 0.9 % (0.0-1.0); EOS # 0.1 10*3/uL (0.0-0.4); EOS % 1.2 % (1.0-4.0); HEMATOCRIT 43.1 % (37.0-47.0); MEAN CELL VOLUME 94.3 fl (81.0-99.0); MEAN CORPUSCULAR HGB 30.6 pg (27.0-31.0); MEAN CORPUSCULAR HGB CONC 32.5 g/dl (33.0-37.0); MEAN PLATELET VOLUME 11.3 fl (9.6-12.3); MONO # 0.6 10*3/uL (0.1-1.0); MONO % 5.7 % (3.0-9.0); NEUT # 6.2 10*3/uL (2.3-7.9); NEUT % 63.2 % (47.0-73.0); PLATELET COUNT AUTOMATED 241 10*3/uL (130-400); RED BLOOD COUNT 4.57 10*6/uL (4.10-5.10); WHITE BLOOD COUNT 9.8 10*3/uL (4.8-10.8)
[2024-06-01 19:45] LABS: ACT PARTIAL THROMBO TIME 22.8 SECONDS (20.0-32.1)
[2024-06-01 19:51] LABS: BILIRUBIN Negative (Negative); BLOOD 2+ (Negative); CLARITY Clear (Clear); COLOR Yellow (Yellow); GLUCOSE Negative (Negative); KETONE Negative (Negative); LEUKO ESTERASE Negative (Negative); NITRITE Negative (Negative); PH 5.5 (4.5-8.0); UROBILINOGEN 0.2 E.U./dl (0.0-1.0)
[2024-06-01 19:56] LABS: ALKALINE PHOSPHATASE 68 U/L (46-116); BUN 8 mg/dl (9-23); CHLORIDE 107 mmol/L (98-107); CPK 34 U/L (34-171); POTASSIUM 3.9 mmol/L (3.4-5.1); SGPT/ALT 12 U/L (5-49); TOTAL PROTEIN 7.1 gm/dL (6.0-8.0)
[2024-06-01 20:04] LABS: BACTERIA 1+
== END 2024-06-01 21:53 | disposition left against medical advice (07) ==
LOC: ED 18:49
PROVIDERS: Emergency Medicine
DX: I46.9 Cardiac arrest, cause unspecified (principal); Z53.29 Procedure and treatment not carried out because of patient's decision for other reasons; R51.9 Headache, unspecified; J44.9 Chronic obstructive pulmonary disease, unspecified; K21.9 Gastro-esophageal reflux disease without esophagitis; F17.200 Nicotine dependence, unspecified, uncomplicated; Z88.0 Allergy status to penicillin; Z90.49 Acquired absence of other specified parts of digestive tract; Z98.890 Other specified postprocedural states; Z79.899 Other long term (current) drug therapy

== ENCOUNTER → 2024-06-22 | Outpatient (CLI) | payer OTHER ==
[~2024-06-22] MED LIST changes: +BREYNA 80-4.510.3 GM INH; +GADOTERATE MEGLUMINE 10 MMOL/20 ML VIAL IV ONE
== END | disposition home or self-care (01) ==
LOC: MRI 06-20 14:00
PROVIDERS: ATTEND Family Medicine
DX: R47.81 Slurred speech (principal)

== ENCOUNTER → 2024-09-26 | Outpatient (CLI) | payer OTHER ==
[~2024-09-26] MED LIST changes: -GADOTERATE MEGLUMINE 10 MMOL/20 ML VIAL IV ONE
[2024-09-26 10:59] LABS: BASO # 0.1 10*3/uL (0.0-0.1); BASO % 1.2 % (0.0-1.0); EOS # 0.3 10*3/uL (0.0-0.4); EOS % 3.2 % (1.0-4.0); HEMATOCRIT 41.4 % (37.0-47.0); MEAN CELL VOLUME 95.2 fl (81.0-99.0); MEAN CORPUSCULAR HGB 30.3 pg (27.0-31.0); MEAN CORPUSCULAR HGB CONC 31.9 g/dl (33.0-37.0); MEAN PLATELET VOLUME 10.5 fl (9.6-12.3); MONO # 0.6 10*3/uL (0.1-1.0); MONO % 5.4 % (3.0-9.0); NEUT # 6.5 10*3/uL (2.3-7.9); NEUT % 63.7 % (47.0-73.0); PLATELET COUNT AUTOMATED 286 10*3/uL (130-400); RED BLOOD COUNT 4.35 10*6/uL (4.10-5.10); RED CELL DISTRI WIDTH 13.1 % (0-14.5); WHITE BLOOD COUNT 10.2 10*3/uL (4.8-10.8)
[2024-09-26 11:38] LABS: ALKALINE PHOSPHATASE 65 U/L (46-116); BUN 15 mg/dl (9-23); CHLORIDE 107 mmol/L (98-107); POTASSIUM 4.9 mmol/L (3.4-5.1); SGPT/ALT 9 U/L (5-49); TOTAL PROTEIN 7.1 gm/dL (6.0-8.0)
== END | disposition home or self-care (01) ==
LOC: LAB 10:31
PROVIDERS: ATTEND Family Medicine
DX: R56.9 Unspecified convulsions (principal)

== ENCOUNTER 2024-10-15 09:41 | Emergency (ER) | payer OTHER ==
[2024-10-15] MEDS ORDERED: LORazepam 2 MG/ML VIAL ONE (09:58)
[2024-10-15 10:06] LABS: BASO # 0.1 10*3/uL (0.0-0.1); BASO % 1.4 % (0.0-1.0); EOS # 0.3 10*3/uL (0.0-0.4); HEMATOCRIT 42.4 % (37.0-47.0); MEAN CELL VOLUME 95.7 fl (81.0-99.0); MEAN CORPUSCULAR HGB 29.6 pg (27.0-31.0); MEAN CORPUSCULAR HGB CONC 30.9 g/dl (33.0-37.0); MEAN PLATELET VOLUME 10.7 fl (9.6-12.3); MONO # 0.4 10*3/uL (0.1-1.0); MONO % 5.5 % (3.0-9.0); NEUT # 4.3 10*3/uL (2.3-7.9); NEUT % 58.3 % (47.0-73.0); PLATELET COUNT AUTOMATED 221 10*3/uL (130-400); RED BLOOD COUNT 4.43 10*6/uL (4.10-5.10); WHITE BLOOD COUNT 7.3 10*3/uL (4.8-10.8)
[2024-10-15] MEDS ORDERED: KEPPRA1000 MG PO (10:28)
[2024-10-15] MEDS ORDERED: VENT7GM INH (10:29)
[2024-10-15] MEDS ORDERED: TRILEPTAL150 MG PO (10:29)
[2024-10-15] MEDS ORDERED: NAYZILAM5 MG/0.1 M INH (10:30)
[2024-10-15 10:48] LABS: ALKALINE PHOSPHATASE 63 U/L (46-116); BUN 13 mg/dl (9-23); CHLORIDE 108 mmol/L (98-107); POTASSIUM 4.3 mmol/L (3.4-5.1); SGPT/ALT 10 U/L (5-49); TOTAL PROTEIN 6.8 gm/dL (6.0-8.0)
[2024-10-15 10:51] LABS: ETHYL ALCOHOL < 3.0 mg/dl (<3)
[2024-10-15 10:56] LABS: ACT PARTIAL THROMBO TIME 20.7 SECONDS (20.0-32.1)
[2024-10-15 11:30] LABS: BILIRUBIN Negative (Negative); BLOOD 2+ (Negative); CLARITY Clear (Clear); COLOR Yellow (Yellow); GLUCOSE Negative (Negative); KETONE Negative (Negative); LEUKO ESTERASE Negative (Negative); NITRITE Negative (Negative)
[2024-10-15 11:37] LABS: URINE AMPHETAMINES Negative (1000ng/ml); URINE BARBITURATES Negative (200ng/ml); URINE BENZODIAZEPINES Negative (200ng/ml); URINE CANNABINOIDS (THC) Negative (50ng/ml); URINE COCAINE Negative (300ng/ml); URINE METHADONE Negative (300ng/ml); URINE OPIATES Negative (300ng/ml); URINE PHENCYCLIDINE Negative (25ng/ml)
[2024-10-15 11:41] LABS: BACTERIA 2+; EPITHELIAL CELLS 0-2; RBC 16-20 rbc/hpf (0-2)
[2024-10-15 11:42] LABS: WBC 0-2 wbc/hpf (0-5)
[2024-10-15] MEDS ORDERED: LEVETIRACETAM 500 MG TAB PO ONE (12:30)
== END 2024-10-15 12:34 | disposition home or self-care (01) ==
LOC: ED 09:41
PROVIDERS: Internal Medicine
DX: R56.9 Unspecified convulsions (principal); F17.200 Nicotine dependence, unspecified, uncomplicated; Z88.0 Allergy status to penicillin; Z79.899 Other long term (current) drug therapy; Z90.49 Acquired absence of other specified parts of digestive tract; Z98.890 Other specified postprocedural states

== ENCOUNTER → 2025-05-22 | Outpatient (CLI) | payer OTHER ==
[~2025-05-22] MED LIST changes: +KEPPRA1000 MG PO; +NAYZILAM5 MG/0.1 M INH; +TRILEPTAL150 MG PO; +VENT7GM INH
== END | disposition home or self-care (01) ==
LOC: CT 02:27
PROVIDERS: ATTEND Internal Medicine Critical Care Medicine
DX: Z12.2 Encounter for screening for malignant neoplasm of respiratory organs (principal); J43.9 Emphysema, unspecified